=== PATIENT | female | born 1970 | race African-American/Black ===

== ENCOUNTER 2017-12-16 12:32 | Outpatient (CLI) | payer BC | END 2017-12-16 12:33 | disposition home or self-care (01) | LOC: BICMRI 12:32 | PROVIDERS: ATTEND Specialist | DX: M48.02 Spinal stenosis, cervical region (principal); M47.892 Other spondylosis, cervical region | CPT/HCPCS: 72141 ==

== ENCOUNTER 2018-11-02 12:47 | Emergency (ER) | payer BC, SELFPAY ==
[2018-11-02 15:31] LABS: #Eosinphils 0.9 thou/uL (0.0-0.7); #Lymphocytes 3.1 thou/uL (1.20-3.40); #Monocytes 0.6 thou/uL (0.11-0.59); #Neutrophils 2.8 thou/uL (1.40-6.50); %Basophils 0.6 % (0.0-1.0); %Eosinophils 11.7 % (0.0-10.0); %Lymphocytes 42.1 % (21.0-51.0); %Monocytes 7.8 % (0.0-10.0); %Neutrophils 37.9 % (42.0-75.0); Hemoglobin 14.5 g/dL (12.0-16.0); Mean Corpuscular HGB CONC 31.6 g/dL (32.0-36.0); Mean Corpuscular Hemoglobin 28.7 pg (27.0-31.0); Mean Corpuscular Volume 90.7 fL (78.0-98.0); Mean Platelet Volume 7.3 fL (7.4-10.4); Platelet Count 280 thou/uL (130-400); RBC Distribution Width 11.6 % (11.5-14.5); Red Blood Cell (RBC) Count 5.07 mill/uL (4.20-5.40); White Blood Cell (WBC) Count 7.3 thou/uL (4.8-10.8)
[2018-11-02 15:44] LABS: BHCG - Serum Negative (NEGATIVE); Pregs Control Background? CLEAR/WHITE (CLR/WHITE); Pregs Control Bar Appear? YES (CONTROL BAR)
[2018-11-02 15:49] LABS: Bacteria/HPF 1+ HPF (None Seen); Bilirubin Negative (Negative); Blood, Urine Negative (Negative); Clarity Clear (Clear); Glucose, Urine (Dipstick) Normal (Negative); Leukocyte 75 Leu/uL (Negative); Nitrite Negative (Negative); Protein, Urine (Dipstick) Negative (Neg-Trace); RBC/HPF 0-3 HPF (0-3); Squamous Epithelial 0-3 HPF (0-3); Urobilinogen Normal mg/dL (Less than 2); WBC/HPF 21-50 HPF (0-3)
[2018-11-02 15:56] LABS: ALT (SGPT) 35 U/L (8-55); AST (SGOT) 29 U/L (5-34); Albumin 4.4 g/dL (3.5-5.0); Alkaline Phosphatase 67 U/L (40-150); Anion Gap 13 mmol/L (10-20); BUN (Urea Nitrogen) 8 mg/dL (7.0-18.7); Bilirubin, Total 0.3 mg/dL (0.2-1.2); Calc. Creatinine Clearance 0 mL/min (70-130); Calcium 9.9 mg/dL (7.8-10.44); Carbon Dioxide 25 mmol/L (22-29); Chloride 105 mmol/L (98-107); Estimated GFR-MDRD 62; Globulin 3.5 g/dL (2.4-3.5); Glucose 86 mg/dL (70-105); Lipase 34 U/L (8-78); Protein, Total 7.9 g/dL (6.0-8.3); Sodium 139 mmol/L (136-145)
[2018-11-02] MEDS ORDERED: Dicyclomine 20 MG TAB ONE (16:28)
[2018-11-02] MEDS ORDERED: Ondansetron ODT 4 MG TAB ONE (16:28)
--- NOTE | 2018-11-05 11:58 | EKG ---
Test Reason : STOMACH PAIN Blood Pressure : / mmHG Vent. Rate : 074 BPM Atrial Rate : 074 BPM P-R Int : 150 ms QRS Dur : 090 ms QT Int : 378 ms P-R-T Axes : 039 001 064 degrees QTc Int : 419 ms Normal sinus rhythm Minimal voltage criteria for LVH, may be normal variant Nonspecific T wave abnormality Abnormal ECG Confirmed by JEFE BURDICK D.O. ([id number]), acquisition editor MIKE TATE ([id number]) on 11/05/2018 11:58:34 AM Referred By: Confirmed By:JEFE BURDICK D.O.
== END 2018-11-02 16:37 | disposition home or self-care (01) ==
LOC: ERS 12:47
DX: K29.70 Gastritis, unspecified, without bleeding (principal); R11.2 Nausea with vomiting, unspecified
CPT/HCPCS: 80053; 81003; 81015; 83690; 84484; 84703; 85025; 93005; Q0162

== ENCOUNTER 2019-03-11 14:23 | Emergency (ER) | payer SELFPAY ==
--- NOTE | 2019-03-11 14:44 | RAD ---
EXAM: Chest PA and lateral: HISTORY: Cough. Fever. COMPARISON: None FINDINGS: Heart: Normal cardiac silhouette Aorta: Unremarkable Pulmonary vessels: Normal Costophrenic angles: Costophrenic angles are clear. Lungs: No consolidation or masses. Pneumothorax: No pneumothorax Osseous structures: No osseous abnormalities IMPRESSION: No acute cardiopulmonary process.
[2019-03-11 14:47] LABS: #Basophils 0.1 thou/uL (0.0-0.2); #Eosinphils 1.4 thou/uL (0.0-0.7); #Lymphocytes 4.1 thou/uL (1.20-3.40); #Monocytes 0.7 thou/uL (0.11-0.59); #Neutrophils 2.7 thou/uL (1.40-6.50); %Basophils 0.9 % (0.0-1.0); %Lymphocytes 45.8 % (21.0-51.0); %Monocytes 7.6 % (0.0-10.0); %Neutrophils 29.8 % (42.0-75.0); Hemoglobin 13.5 g/dL (12.0-16.0); Mean Corpuscular HGB CONC 33.1 g/dL (32.0-36.0); Mean Corpuscular Hemoglobin 29.5 pg (27.0-31.0); Mean Corpuscular Volume 89.1 fL (78.0-98.0); Mean Platelet Volume 7.5 fL (7.4-10.4); Platelet Count 289 thou/uL (130-400); RBC Distribution Width 11.5 % (11.5-14.5); Red Blood Cell (RBC) Count 4.58 mill/uL (4.20-5.40)
[2019-03-11 15:07] LABS: ALT (SGPT) 19 U/L (8-55); AST (SGOT) 18 U/L (5-34); Albumin 4.3 g/dL (3.5-5.0); Alkaline Phosphatase 86 U/L (40-110); Anion Gap 10 mmol/L (10-20); BUN (Urea Nitrogen) 8 mg/dL (7.0-18.7); Bilirubin, Total 0.2 mg/dL (0.2-1.2); Calc. Creatinine Clearance 0 mL/min (70-130); Calcium 9.1 mg/dL (7.8-10.44); Carbon Dioxide 28 mmol/L (22-29); Chloride 107 mmol/L (98-107); Estimated GFR-MDRD 69; Glucose 99 mg/dL (70-105); Potassium 3.7 mmol/L (3.5-5.1); Protein, Total 7.3 g/dL (6.0-8.3); Sodium 141 mmol/L (136-145)
[2019-03-11] MEDS ORDERED: predniSONE 20 MG TAB ONE (15:24)
== END 2019-03-11 16:30 | disposition home or self-care (01) ==
LOC: ERS 14:23
DX: J20.9 Acute bronchitis, unspecified (principal)
CPT/HCPCS: 36415; 71046; 80053; 83880; 84484; 85025; 93005; 94640; J7512; J7620

== ENCOUNTER 2019-03-26 13:50 | Emergency (ER) | payer SELFPAY ==
--- NOTE | 2019-03-26 14:32 | RAD ---
EXAM: Chest PA and lateral: HISTORY: Cough COMPARISON: none FINDINGS: Lung michaels are clear. Vascular markings are normal. Heart and mediastinum appear unremarkable. Osseous structures are unremarkable. IMPRESSION: Unremarkable chest
== END 2019-03-26 15:06 | disposition home or self-care (01) ==
LOC: ERS 13:50
DX: J18.9 Pneumonia, unspecified organism (principal)
CPT/HCPCS: 71046; 94640; J7620

== ENCOUNTER 2019-04-11 18:55 | Emergency (ER) | payer SELFPAY ==
--- NOTE | 2019-04-11 21:40 | RAD ---
TWO VIEW CHEST: 04/11/19 HISTORY: Cough. Lungs are clear. No evidence of infiltrate. Heart and mediastinum unremarkable. IMPRESSION: No acute findings. POS: OFF
--- NOTE | 2019-04-20 06:18 | PQF ---
[facility] POST DISCHARGE CLINICAL DOCUMENTATION IMPROVEMENT CLARIFICATION FORM Todays Date 04/17/19 Patients Name Shaista Prabhakar MR [id number] Acct #N [id number] Admit Date 04/11/2019 Disch Date 04/11/2019 It Generalist Name Trixie Staplse Email: [email or web address] Cell: [phone] To be completed by It Generalist: Present Clinical Indicators - Signs / Symptoms Results and Location in Medical Record [ ] Documentation of: unspecified Bronchitis [ ] [ ] [ ] [ ] [ ] [ ] [ ] [ ] Risks [ ] [ ] [ ] Treatment [ ] Bronchitis Query for Specificity of Acute or Chronic of Bronchitis. [ ] [ ] To be completed by Physician: GLENNA Palmer Jeffrey The documentation in this patients record requires clarification to ensure coding compliance and accuracy. Check the appropriate box and include in your discharge summary. [ x] ___Acute bronchitis [ ] [ ] [ ] Please check this box if this does not apply to this patient [ ] Unable to determine [ ] Other diagnosis: Review the following information and exercise your independent professional judgment in responding to the clarification. Based upon the clinical findings, risk factors, and treatment, please clarify if you are treating one of the above probable or suspected diagnoses. Physician Signature: Danny Palmer Date 04/25/19__ Time MTDD
== END 2019-04-11 22:31 | disposition home or self-care (01) ==
LOC: ERS 18:55
DX: J40 Bronchitis, not specified as acute or chronic (principal)
CPT/HCPCS: 71046; 94640; J7620

== ENCOUNTER 2023-04-06 13:51 | Outpatient (CLI) | payer BC | END 2023-04-06 13:52 | disposition home or self-care (01) | LOC: BICMAMMO 13:51 | PROVIDERS: ATTEND Nurse Practitioner Family | DX: Z12.31 Encounter for screening mammogram for malignant neoplasm of breast (principal); Z80.3 Family history of malignant neoplasm of breast | CPT/HCPCS: 77063; 77067 ==